=== PATIENT | male | born 1980 | race Caucasian/White ===

== ENCOUNTER 2023-10-01 18:20 | Emergency (ER) | payer MEDICAID ==
[~2023-10-01] VITALS: Ht 175.3 cm; Wt 142.9 kg
[~2023-10-01 18:20] MED LIST: IBUP-1842 PO; LIDO5TDM59 TP
[2023-10-01 18:58] VITALS: BP 139/86; PULSE 92; RESP 16; TEMP 98.3; O2SAT 97
[2023-10-01] MEDS ORDERED: DICL100G32 TP (19:56)
[2023-10-01] MEDS ORDERED: CAPS1ADH5 TP (19:56)
[2023-10-01] MEDS ORDERED: ALBU0.0912 INH (19:56)
[2023-10-01] MEDS ORDERED: NAPR-1704 PO (19:56)
[2023-10-01] MEDS ORDERED: AMLO10TA PO (19:56)
[2023-10-01] MEDS: KETOROLAC 30 MG/ML VIAL IM ONE (20:04)
== END 2023-10-01 20:04 | disposition home or self-care (01) ==
LOC: MED 18:20
DX: S46.811A Strain of other muscles, fascia and tendons at shoulder and upper arm level, right arm, initial encounter (principal); I10 Essential (primary) hypertension; Z79.899 Other long term (current) drug therapy; X58.XXXA Exposure to other specified factors, initial encounter; Y93.89 Activity, other specified; Y92.89 Other specified places as the place of occurrence of the external cause; Y99.8 Other external cause status
CPT/HCPCS: 93005; 96372; 99283; J1885

== ENCOUNTER 2023-11-15 10:33 | Emergency (ER) | payer MEDICAID ==
[~2023-11-15] VITALS: Ht 175.3 cm; Wt 146.1 kg
[~2023-11-15 10:33] MED LIST changes: +ALBU0.0912 INH; +AMLO10TA PO; +CAPS1ADH5 TP; +DICL100G32 TP; +NAPR-1704 PO
[2023-11-15 10:45] VITALS: BP 142/92; PULSE 74; RESP 20; TEMP 97.6; O2SAT 96
[2023-11-15] MEDS: KETOROLAC 60 MG/2 ML VIAL IM ONE (11:02)
[2023-11-15] MEDS ORDERED: ACET-503 PO (11:07)
[2023-11-15] MEDS ORDERED: IBUP-2213 PO (11:07)
[2023-11-15 11:15] VITALS: BP 142/92; PULSE 74; RESP 20; TEMP 97.6; O2SAT 96
== END 2023-11-15 11:22 | disposition home or self-care (01) ==
LOC: MED 10:33
DX: M25.531 Pain in right wrist (principal); I10 Essential (primary) hypertension; Z79.1 Long term (current) use of non-steroidal anti-inflammatories (NSAID); Z79.899 Other long term (current) drug therapy
CPT/HCPCS: 29125; 96372; 99283; J1885

== ENCOUNTER 2023-11-27 09:18 | Emergency (ER) | payer MEDICAID ==
[~2023-11-27] VITALS: Ht 175.3 cm; Wt 144.7 kg
[~2023-11-27 09:18] MED LIST changes: +ACET-503 PO; +IBUP-2213 PO
[2023-11-27 09:50] VITALS: BP 159/100; PULSE 70; RESP 17; TEMP 97.7; O2SAT 95
[2023-11-27] MEDS: KETOROLAC 30 MG/ML VIAL IM ONE (11:26)
[2023-11-27] MEDS ORDERED: IBUP-2213 PO (11:37)
[2023-11-27 11:57] VITALS: BP 134/70; PULSE 80; RESP 18; TEMP 97.3; O2SAT 95
== END 2023-11-27 11:59 | disposition home or self-care (01) ==
LOC: MED 09:18
DX: M25.531 Pain in right wrist (principal); I10 Essential (primary) hypertension; Z79.1 Long term (current) use of non-steroidal anti-inflammatories (NSAID); Z79.899 Other long term (current) drug therapy; X50.0XXA Overexertion from strenuous movement or load, initial encounter; Y93.89 Activity, other specified; Y92.512 Supermarket, store or market as the place of occurrence of the external cause; Y99.0 Civilian activity done for income or pay
CPT/HCPCS: 29125; 73110; 96372; 99283; J1885

== ENCOUNTER 2023-12-14 12:41 | Emergency (ER) | payer MEDICAID ==
[~2023-12-14] VITALS: Ht 175.3 cm; Wt 144.2 kg
[2023-12-14 12:43] VITALS: BP 166/99; PULSE 89; RESP 20; TEMP 97.4; O2SAT 97
[2023-12-14] MEDS: KETOROLAC 30 MG/ML VIAL IM ONE (13:38)
[2023-12-14 13:51] VITALS: BP 134/70; PULSE 80; RESP 18; TEMP 98.3; O2SAT 98
== END 2023-12-14 13:49 | disposition home or self-care (01) ==
LOC: MED 12:41
DX: M25.531 Pain in right wrist (principal); I10 Essential (primary) hypertension; Z79.1 Long term (current) use of non-steroidal anti-inflammatories (NSAID); Z79.899 Other long term (current) drug therapy; X58.XXXA Exposure to other specified factors, initial encounter; Y93.89 Activity, other specified; Y92.89 Other specified places as the place of occurrence of the external cause; Y99.8 Other external cause status
CPT/HCPCS: 29125; 96372; 99283; J1885

== ENCOUNTER 2024-01-15 14:22 | Emergency (ER) | payer MEDICAID ==
[~2024-01-15] VITALS: Ht 175.3 cm; Wt 142.9 kg
[2024-01-15 14:37] VITALS: BP 151/102; PULSE 80; RESP 18; TEMP 97.3; O2SAT 97
[2024-01-15] MEDS: KETOROLAC 60 MG/2 ML VIAL IM ONE (15:08)
[2024-01-15] MEDS ORDERED: KETO10TA2 PO (15:11)
== END 2024-01-15 15:22 | disposition home or self-care (01) ==
LOC: MED 14:22
DX: M77.8 Other enthesopathies, not elsewhere classified (principal); I10 Essential (primary) hypertension; Z79.1 Long term (current) use of non-steroidal anti-inflammatories (NSAID); Z79.899 Other long term (current) drug therapy
CPT/HCPCS: 29125; 96372; 99283; J1885

== ENCOUNTER 2024-03-20 08:39 | Emergency (ER) | payer MEDICAID ==
[~2024-03-20] VITALS: Ht 175.3 cm; Wt 141.6 kg
[~2024-03-20 08:39] MED LIST changes: +KETO10TA2 PO
[2024-03-20 09:00] VITALS: BP 150/106; PULSE 86; RESP 18; TEMP 98.6; O2SAT 96
--- NOTE | 2024-03-20 09:03 | NUR ---
PT AMBULATED TO ER BED 08
--- NOTE | 2024-03-20 09:11 | NUR ---
Patient being evaluated by physician at bedside.
--- NOTE | 2024-03-20 09:15 | NUR ---
PT CO N/V/D SINCE LAST NIGHT, SAYS HE THINKS ITS SOMETHING HE ATE LAST NIGHT. MD AT BEDSIDE, PT STATED HE HAS GASTRITIS AND HE THINKS WHAT HE ATE TRIGGERED HIS GASTRITIS AND HE DOESN'T HAVE ANY MEDICATION AND WANTS HIS RX REFILLED.
[2024-03-20] MEDS ORDERED: AMLO10TA PO (09:25)
[2024-03-20] MEDS ORDERED: OMEP20EC11 PO (09:25)
[2024-03-20 09:35] VITALS: BP 150/106; PULSE 86; RESP 18; TEMP 98.6; O2SAT 96
--- NOTE | 2024-03-20 09:35 | NUR ---
Patient discharged with v/s stable. Written and verbal after care instructions given and explained. Patient alert, oriented and verbalized understanding of instructions. Ambulatory with steady gait. All questions addressed prior to discharge. ID band removed. Patient advised to follow up with PMD. Rx of NORVASC, PRILOSEC given. Patient educated on indication of medication including possible reaction and side effects. Opportunity to ask questions provided and answered. PT WITH ELEVATED BP, MD AWARE AND RX OF NORVASC GIVEN, EXPLAINED USE OF NORVASC TO PT FOR BP, UNDERSTANDS
== END 2024-03-20 09:35 | disposition home or self-care (01) ==
LOC: MED 08:39
DX: R19.7 Diarrhea, unspecified (principal); R10.13 Epigastric pain; K21.9 Gastro-esophageal reflux disease without esophagitis; I10 Essential (primary) hypertension; Z79.1 Long term (current) use of non-steroidal anti-inflammatories (NSAID); Z79.899 Other long term (current) drug therapy
CPT/HCPCS: 99281; 99283